=== PATIENT | female | born 1995 | race Hispanic/Latino ===

== ENCOUNTER 2017-10-22 11:57 | Day surgery (SDC) | payer OTHER ==
[~2017-10-22] VITALS: Ht 154.9 cm; Wt 79.0 kg
[~2017-10-22 11:57] MED LIST: PRENATAL TABLE1 EAC3 PO
[2017-10-22 12:39] VITALS: BP 113/56
[2017-10-22] MEDS ORDERED: ENDOCET 5-3251 EACH PO (14:23)
[2017-10-22 15:15] VITALS: BP 113/58
[2017-10-22 16:10] VITALS: BP 127/73
== END 2017-10-22 16:15 | disposition home or self-care (01) ==
LOC: SDC 11:57
PROC: 10D17ZZ Extraction of Products of Conception, Retained, Via Natural or Artificial Opening (ICD-10-PCS; principal; 2017-10-22)
DX: O02.1 Missed abortion (principal); Z3A.12 12 weeks gestation of pregnancy
CPT/HCPCS: 84702; 88305; J1100; J1170; J1885; J2250; J2405; J3010

== ENCOUNTER 2018-06-01 16:21 | Emergency (ER) | payer OTHER ==
[~2018-06-01] VITALS: Ht 157.5 cm; Wt 80.3 kg
[~2018-06-01 16:21] MED LIST changes: +ENDOCET 5-3251 EACH PO
[2018-06-01 19:37] LABS: HEMATOCRIT 37.6 % (36.0-46.0); HEMOGLOBIN 12.8 G/DL (11.9-15.5); MCH 30.4 PG (29.0-34.0); MCV 89.3 FL (83-99); PLATELET COUNT 213 K/uL (156-360); RBC DIS.WIDTH-CV 12.3 % (11.8-14.6); RBC DIS.WIDTH-SD 40.1 % (39-53); RED BLOOD COUNT 4.21 M/uL (3.80-5.20); WHITE BLOOD COUNT 10.5 K/uL (4.1-10.2)
[2018-06-01 19:44] LABS: ALBUMIN 4.2 g/dL (3.2-4.8); CHLORIDE 107 mEq/L (99-109); POTASSIUM 3.5 mEq/L (3.7-5.4); SODIUM 139 mEq/L (136-147)
[2018-06-01 19:46] LABS: GLUCOSE 92 mg/dL (70-99); TOTAL PROTEIN 7.3 g/dL (6.4-8.3)
[2018-06-01 19:48] LABS: TOTAL BILIRUBIN 0.4 mg/dL (0.0-1.0)
[2018-06-01 19:50] LABS: ALKALINE PHOSPHATASE 69 IU/L (3-129); CREATININE 0.7 mg/dL (0.6-1.3); GFR ESTIMATE (CALCULATED) > 59 mL/min/
[2018-06-01 19:51] LABS: UREA NITROGEN (BUN) 11 mg/dL (9-23)
[2018-06-01 19:52] LABS: AST (GOT) 13 IU/L (2-34)
[2018-06-01 19:53] LABS: ALT (GPT) 10 IU/L (3-49)
[2018-06-01 20:03] LABS: QUANTITATIVE HCG 582.1 MIU/ML
[2018-06-01 21:41] LABS: APPEARANCE CLEAR ((CLEAR)); BILIRUBIN NEGATIVE; BLOOD MODERATE; COLOR YELLOW ((YELLOW)); GLUCOSE (STRIP) NEGATIVE; KETONES 5; LEUKOCYTES NEGATIVE; NITRITE NEGATIVE; PROTEIN (STRIP) NEGATIVE; SPECIFIC GRAVITY 1.029 (1.000-1.030); UROBILINOGEN 0.2 MG/DL (0.2-1.0)
[2018-06-01 21:44] LABS: BACTERIA NONE SEEN /HPF; EPITHELIAL CELLS RARE /HPF; MUCUS TRACE /LPF; RED BLOOD CELLS 0-5 /HPF (0-5); UCUL ADDED? NO; WHITE BLOOD CELLS 0-5 /HPF (0-5)
[2018-06-01 22:59] VITALS: BP 119/56
== END 2018-06-01 23:00 | disposition home or self-care (01) ==
LOC: EXP 16:21 → EME 16:21 → EXP 23:00
PROVIDERS: Physician Assistant
DX: O99.89 Other specified diseases and conditions complicating pregnancy, childbirth and the puerperium (principal); R10.2 Pelvic and perineal pain
CPT/HCPCS: 76801; 80053; 81003; 84702; 85027; 99281; 99284